=== PATIENT | female | born 1930 | race Caucasian/White ===

== ENCOUNTER 2016-11-03 06:59 | Emergency (ER) | payer OTHER, BC ==
[2016-11-03 07:42] VITALS: BP 0/0; BMI 20.2
--- NOTE | 2016-11-03 07:57 | PDOC ---
History of Present Illness - General History Source: EMS, Family, Old Records Exam Limitations: Clinical Condition <Silvia Roy - Last Filed: 11/03/16 07:54> - General History Source: EMS, Family (Son) Exam Limitations: Other (Altered Mental status ) - History of Present Illness Initial Comments: 11/03/16 08:53 The patient is a 86 year old female brought via EMS and presenting with her son , with a significant past medical history of HTN, CVA, IBS, diverticulitis, diverticulosis and ovarian CA, who presents to the emergency department with altered mental status and shortness of breath since this morning. The son notes that yesterday the patient was actively following directions to move her extremities and recite the ABCs but this morning that drastically changed. In the field the patient's fingerstick was 65. The patient is noted to be DNR/DNI. During presentation the son was advised that the patient's prognosis was not positive and we would take minimal measures as per her wishes of DNR/DNI. Upon reevaluation of the patient, the patient's breathing was further depressed and had become further bradycardic, the patient with her son at the bedside at 7:12am. Allergies: ciprofloxacin, calcium, ,risedronate sodium, Tetanus Vaccines & Toxoid Past surgical history: Cholecystectomy Social history: Former Heavy smoker (quit 20 years ago) PMD - Dr. Pipe Esteban <Iglesia Pang - Last Filed: 11/03/16 09:44> - General Chief Complaint: CVA/TIA Stated Complaint: POSSIBLE STROKE Time Seen by Provider: 11/03/16 07:23 Past History - Past Medical History Cancer: Yes (UTERINE CA) CVA: Yes (NO RESIDUAL) Dementia: No Diabetes: No GI Disorders: Yes (IBS) Disorders: No HTN: Yes Hypercholesterolemia: No Liver Disease: No Suicide Attempt (Hx): No Seizures: No - Surgical History Cholecystectomy: Yes Orthopedic Surgery: Yes - Psycho/Social/Smoking Cessation Hx Anxiety: No Suicidal Ideation: No Smoking History: Former smoker Have you smoked in the past 12 months: No Information on smoking cessation initiated: No Hx Alcohol Use: No Drug/Substance Use Hx: No Substance Use Type: None <Silvia Roy - Last Filed: 11/03/16 07:54> <Iglesia Pang - Last Filed: 11/03/16 09:44> - Past Medical History Allergies/Adverse Reactions: Allergies Allergy/AdvReac Type Severity Reaction Status Date / Time calcium Allergy Verified 11/03/16 07:29 ciprofloxacin [From Cipro] Allergy Verified 11/03/16 07:29 ciprofloxacin HCl Allergy Verified 11/03/16 07:29 [From Cipro] Tetanus Vaccines and Toxoid Allergy Verified 11/03/16 07:29 [Tetanus Vaccines & Toxoid] risedronate sodium AdvReac Verified 11/03/16 07:29 [From Actonel] Home Medications: Ambulatory Orders Aspirin [ASA -] 81 mg PO DAILY 07/29/14 Calcium 250Mg/Vit-D 125 Units [Oscal 250 mg+D -] 500 combo PO BID 07/29/14 Docusate Sodium [Colace -] 100 mg PO BID 07/29/14 Lactose-Reduced Food [Ensure Liquid] 237 ml PO DAILY 07/29/14 Amlodipine Besylate [Norvasc -] 10 mg PO DAILY #30 tablet 08/05/14 Nystatin/Triamcinolone Top Oin [Mycolog II -] 1 applic TP BID #60 grams Oxycodone HCl [Roxicodone -] 5 mg PO Q4H PRN #60 tablet 08/05/14 Pantoprazole Sodium [Protonix] 40 mg PO DAILY #30 tablet. 08/05/14 Unobtainable 11/03/16 Review of Systems - Review of Systems Able to Perform ROS?: No Comments:: 11/03/16 08:53 Unable to obtain due to patient altered mental status. <Iglesia Pang - Last Filed: 11/03/16 09:44> *Physical Exam - Vital Signs Last Vital Signs Temp Pulse Resp BP Pulse Ox 0/0 11/03/16 07:25 <Silvia Roy - Last Filed: 11/03/16 07:54> - Vital Signs Last Vital Signs Temp Pulse Resp BP Pulse Ox 0/0 11/03/16 07:25 - Physical Exam Comments: 11/03/16 09:39 GENERAL: Unresponsive. Labored breathing. Pale complexion. HEAD: No signs of trauma, normocephalic, atraumatic EYES: PERRLA, EOMI, sclera anicteric, conjunctiva clear ENT: Auricles normal inspection, nares patent, oropharynx clear without exudates. Moist mucosa NECK: Normal ROM, supple, no lymphadenopathy, JVD, or masses LUNGS: +Depressed Respiratory drive, diminished breath sounds HEART: +Bradycardia. ABDOMEN: Soft, nontender, normoactive bowel sounds. No guarding, no rebound. No masses EXTREMITIES: Normal inspection, Normal range of motion, no edema. No clubbing or cyanosis. NEUROLOGICAL: Unattainable due to altered mental status SKIN: Warm, Dry, normal turgor, no rashes or lesions noted. <Iglesia Pang - Last Filed: 11/03/16 09:44> Medical Decision Making - Medical Decision Making 11/03/16 07:54 86-year-old female with history of hypertension and CVA who presented to the emergency department with altered mental status and left-sided weakness found to have agonal respirations. The patient was DNR/DNI. After brief discussion with the patient's family stressing that the patient to be an active stages of with agonal respirations, the patient's family agreed that there should be no resuscitative measures taken should she pass away. The patient became progressively bradycardic and her respirations ceased. Asystole was noted on the monitor. The patient shortly after arrival to the emergency department and time of was pronounced at 7:[address] Esteban has been notified. <Silvia Roy - Last Filed: 11/03/16 07:54> - Medical Decision Making 11/03/16 09:38 Dr. Pipe Esteban was called regarding the patient at 7:37am. Dr. Esteban was consulted regarding the patient at 7:52am [phone] <Iglesia Pang - Last Filed: 11/03/16 09:44> *DC/Admit/Observation/Transfer - Discharge Dispostion Admit: No <Silvia Roy - Last Filed: 11/03/16 07:54> - Attestations Scribe Attestion: 11/03/16 08:56 Documentation prepared by Iglesia Pang, acting as durable medical equipment technician for Silvia Roy MD. <Iglesia Pang - Last Filed: 11/03/16 09:44> Diagnosis at time of Disposition: Cardiac arrest - Discharge Dispostion Condition at time of disposition:
== END 2016-11-03 10:05 | disposition expired ==
LOC: JER 06:59
DX: I46.9 Cardiac arrest, cause unspecified (principal); Z86.73 Personal history of transient ischemic attack (TIA), and cerebral infarction without residual deficits; I10 Essential (primary) hypertension
CPT/HCPCS: 99283-25